=== PATIENT | female | born 1995 | race Caucasian/White ===

== ENCOUNTER 2019-09-11 09:32 | Emergency (ER) | payer BC, MEDICAID ==
[~2019-09-11] VITALS: Ht 170.2 cm; Wt 68.0 kg
[2019-09-11 09:47] VITALS: BP_SYST 125
[2019-09-11 10:40] LABS: INFLUENZA A&B ANTIGEN SCREEN NEGATIVE FOR A & B (NEGATIVE); STREPTOCOCCUS A SCREEN (RAPID) NEGATIVE (NEGATIVE)
--- NOTE | 2019-09-11 14:20 | NUR ---
Patient to ER triage to gown for evaluation. Side rails up.
--- NOTE | 2019-09-11 14:21 | NUR ---
MARINA Gandara at examining patient.
[2019-09-11 14:25] VITALS: BP_SYST 124
--- NOTE | 2019-09-11 14:25 | NUR ---
Patient given written and verbal discharge instructions and verbalizes understanding. ER MD discussed with patient the results and treatment provided. Patient in stable condition. ID arm band removed. Rx of chloraseptic,naprosyn given. Patient educated on pain management and to follow up with PMD. Pain Scale 2. Opportunity for questions provided and answered. Medication side effect fact sheet provided.
== END 2019-09-11 14:25 | disposition home or self-care (01) ==
LOC: SED 09:32
DX: J02.8 Acute pharyngitis due to other specified organisms (principal); B97.89 Other viral agents as the cause of diseases classified elsewhere
CPT/HCPCS: 36415; 86403; 86710; 87081; 99283